=== PATIENT | male | born 1980 ===

== ENCOUNTER 2021-03-23 10:01 | Outpatient (CLI) | payer OTHER ==
--- NOTE | 2021-03-23 11:45 | XRay Report ---
RIGHT ANKLE HISTORY: Pain. COMPARISON: None. TECHNIQUE: 2 views of the right ankle obtained. FINDINGS: Bones: No fracture or dislocation. Joint spaces: Maintained. Soft tissues: No significant abnormality. Additional findings: None. IMPRESSION: Unremarkable right ankle radiographs. No evidence of acute osseous injury or significant degenerative change. Signer Name: Jd Lopez MD Signed: 03/23/2021 11:40 AM Workstation Name: [id number]
--- NOTE | 2021-03-23 11:52 | XRay Report ---
CHEST 2 VIEWS INDICATION / CLINICAL INFORMATION: Shortness of breath.. COMPARISON: None available. FINDINGS: SUPPORT DEVICES: None. HEART / MEDIASTINUM: No significant abnormality. LUNGS / PLEURA: No significant pulmonary or pleural abnormality. No pneumothorax. ADDITIONAL FINDINGS: No significant additional findings. IMPRESSION: 1. No acute findings. Signer Name: Jd Lopez MD Signed: 03/23/2021 11:48 AM Workstation Name: [id number]
--- NOTE | 2021-03-23 11:56 | XRay Report ---
BILATERAL KNEES HISTORY: Pain. COMPARISON: None. TECHNIQUE: One view of the bilateral knees were obtained. FINDINGS: Bones: No fracture or dislocation. Joint spaces: Moderate medial compartment joint space narrowing with suspected mild osteoarthritic ch karlie. Soft tissues: No significant abnormality. Additional findings: None. IMPRESSION: No evidence of acute osseous injury. Suspected moderate joint space narrowing at the lateral compartments bilaterally with mild osteoarthr itic change. If indicated, additional views of the knees may be beneficial. Signer Name: Jd Lopez MD Signed: 03/23/2021 11:52 AM Workstation Name: [id number]
== END 2021-03-23 10:02 | disposition home or self-care (01) ==
LOC: XRAY 10:01
PROVIDERS: ATTEND Internal Medicine
DX: M17.0 Bilateral primary osteoarthritis of knee (principal); R06.02 Shortness of breath; M25.571 Pain in right ankle and joints of right foot
CPT/HCPCS: 71046; 73565